=== PATIENT | female | born 1955 | race Caucasian/White ===

== ENCOUNTER 2019-02-05 13:47 | Outpatient (CLI) | payer MEDICAID ==
[~2019-02-05 13:47] MED LIST: ASCO125T PO; ASPI-1265 PO; ATOR40TA PO; BAC10T PO; CALCIUM CARB PO; CARV-50 PO; CEPH250T PO; CLIN300C53 PO; COU3T PO; CRANBERRY FRUIT PO; FERR325T28 PO; GABA-532 PO; HYDR-3973 PO; NITR100C PO; OXYB5TAB16 PO; ROPI8TAB3 PO; SERT50TA PO; VIT D3 PO; VIT K PO; [UNRECOGNIZED DRUG - OTHER] PO
== END 2019-02-05 23:59 | disposition home or self-care (01) ==
LOC: RAD 13:47
PROVIDERS: ATTEND Family Medicine
DX: I69.391 Dysphagia following cerebral infarction (principal); R13.14 Dysphagia, pharyngoesophageal phase; K21.9 Gastro-esophageal reflux disease without esophagitis; I50.9 Heart failure, unspecified; F17.200 Nicotine dependence, unspecified, uncomplicated
CPT/HCPCS: 74230

== ENCOUNTER 2024-03-27 09:14 | Day surgery (SDC) | payer BC, MEDICAID ==
[~2024-03-27] VITALS: Ht 162.6 cm; Wt 60.0 kg
[~2024-03-27 09:14] MED LIST changes: -ASCO125T PO; -ASPI-1265 PO; +ASPI-1397 PO; +ATOM40CA7 PO; -ATOR40TA PO; +ATOR40TA72 PO; -BAC10T PO; +BACL20TA PO; +CALC260T15 PO; -CALCIUM CARB PO; -CARV-50 PO; +CARV6.253 PO; -CEPH250T PO; -CLIN300C53 PO; -COU3T PO; -CRANBERRY FRUIT PO; +DULO30CA52 PO; +FERR-106 PO; -FERR325T28 PO; -GABA-532 PO; +GABA300C PO; +HYDR-3686 PO; -HYDR-3973 PO; -NITR100C PO; +OXYB10TA30 PO; -OXYB5TAB16 PO; +OXYC5CAP22 PO; +ROPI4TAB41 PO; -ROPI8TAB3 PO; -SERT50TA PO; -VIT D3 PO; -VIT K PO; +WARF3TAB56 PO; -[UNRECOGNIZED DRUG - OTHER] PO
[2024-03-27 09:49] VITALS: BP 128/68; PULSE 59; RESP 18; TEMP 98.1
[2024-03-27] MEDS ORDERED: simethicone 40mg/0.6ml oral drops 30ml ONE (11:10)
[2024-03-27] MEDS ORDERED: LIDOcaine 2% Viscous 15ml cup ONE (11:16)
[2024-03-27] MEDS ORDERED: fentaNYL/PF 50MCG/1 ML 2ML syringe ONE (11:16)
[2024-03-27] MEDS ORDERED: MIDAZolam 1 MG/ML 5ML VIAL ONE (11:16)
[2024-03-27] MEDS ORDERED: diphenhydrAMINE 50 mg/ml inj ONE (11:16)
[2024-03-27 11:35] VITALS: BP 93/49; PULSE 62; RESP 18; O2SAT 99
[2024-03-27 11:45] VITALS: BP 107/68; PULSE 64; RESP 11; O2SAT 100
[2024-03-27 11:55] VITALS: BP 124/70; PULSE 60; RESP 14; O2SAT 100
[2024-03-27 12:05] VITALS: BP 111/72; PULSE 57; RESP 15; O2SAT 100
== END 2024-03-27 12:15 | disposition home or self-care (01) ==
LOC: GI LAB 09:14
PROVIDERS: ATTEND Internal Medicine Gastroenterology
DX: R13.10 Dysphagia, unspecified (principal); K29.71 Gastritis, unspecified, with bleeding; K31.89 Other diseases of stomach and duodenum
CPT/HCPCS: 43239; 99152; J2250; J3010; J7030; Z7512; 88305; A4620; J1200

== ENCOUNTER 2025-03-05 18:55 | Emergency (ER) | payer MEDICARE, MEDICAID ==
[~2025-03-05] VITALS: Ht 162.6 cm; Wt 64.0 kg
[2025-03-05 18:59] VITALS: TEMP 98.2
[2025-03-05] MEDS: acetaminophen 1,000mg/100ml IV 100 ML IV ONE (19:00)
--- NOTE | 2025-03-05 19:02 | Physician Documentation ---
History of Present Illness ~ Stated Complaint: FALL Time Seen by MD: 18:59 Primary Medical Doctor: [facility] HPI Patient presents to the emergency room for evaluation after fall from her wheelchair. Positive head strike and she is on thinners. Complaining of left hip pain. Tetanus within 5 Years?: No Medication Reconciliation Allergies: Coded Allergies: No Known Allergies (Unverified , 11/02/11) Scheduled Aspirin (Aspirin EC), 1 TAB PO DAILY, (Reported) Atomoxetine HCl (Atomoxetine HCl), 1 CAP PO QAM, (Reported) Atorvastatin Calcium (Atorvastatin Calcium), 1 TAB PO DAILY, (Reported) Baclofen (Baclofen), 1 TAB PO QID, (Reported) Calcium Carbonate (Calcium Carbonate), 1 TAB PO BID, (Reported) Carvedilol (Carvedilol), 1 TAB PO BID, (Reported) Duloxetine HCl (Duloxetine HCl), 1 CAP PO DAILY, (Reported) Ferrous Sulfate (Ferrous Sulfate), 1 TAB PO DAILY, (Reported) Gabapentin (Neurontin), 1 CAP PO DAILY@1200, (Reported) Gabapentin (Neurontin), 3 CAP PO HS, (Reported) Hydroxyzine Hcl (Atarax), 1 TAB PO DAILY, (Reported) Oxybutynin Chloride (Ditropan Xl), 1 TAB PO DAILY, (Reported) Ropinirole HCl (Ropinirole HCl), 1 TAB PO BID, (Reported) Warfarin Sodium (Warfarin Sodium), 1 TAB PO DAILY, (Reported) Miscellaneous Medications Oxycodone HCl (Oxycodone HCl), 1 CAP PO, (Reported) Past Medical History Past Medical History: CVA/TIA/Stroke, Peripheral Neuropathy, High Cholesterol, Hypertension, Constipation, Chronic Pain Past Surgical History: orthopedic surgeries Other Past Surgical History: Right bka Alcohol Use: Occasionally Drug Use: none Lives with: S/O Lives In: Assisted Care Occupation: disabled Review of Systems ROS All review of systems negative except as per HPI Physical Exam Physical Exam General: Patient is awake, alert, oriented x4 in no acute distress Head: Normocephalic and atraumatic. Eyes: Conjunctival normal. EOMI. PERRL. ENT: Mucous membranes moist. Neck: Supple, trachea is midline. Chest: Clear to auscultation bilaterally without rales, rhonchi, or wheezes. There is no accessory muscle use or retractions. Cardiac: RRR without murmurs, gallops, or rubs. Abd: Soft, nondistended, nontender, with normoactive bowel sounds. No guarding, rebound, or rigidity. Extremities: Positive log roll on left leg. Neurovascularly intact. Noted BKA of right lower extremity. Progress Results/Orders Results/Orders Orders - NITHIN SUAZO MD Urinalysis, Cult If Indicated (03/05/25 18:59) Type And Screen (03/05/25 18:59) Chest,Single View (03/05/25 18:59) Nothing By Mouth (03/06/25 Breakfast) Monitor (03/05/25 18:59) Saline Lock (03/05/25 18:59) Ct Head (03/05/25 18:59) Hip Unilateral 2-3 Views (03/05/25 18:59) Completed Orders - NITHIN SUAZO MD Cbc/Diff (03/05/25 18:59) BMP (03/05/25 18:59) PTT (03/05/25 18:59) Pt Inr (03/05/25 18:59) Chest,Single View (03/05/25 18:59) Electrocardiogram (03/05/25 18:59) Ct Head (03/05/25 18:59) Hip Unilateral 2-3 Views (03/05/25 18:59) Acetaminophen 1,000mg/100ml Iv (Ofirmev (03/05/25 19:00) Ondansetron Inj. (Zofran 4mg/2ml Vial) (03/05/25 19:35) Morphine 2mg/Ml Inj. (Morphine Inj.) (03/05/25 20:15) Medications Received in ER Medications (Trade) Dose Ordered Sig/Chely Route PRN Reason Start Time Stop Time Status Last Admin Dose Admin Acetaminophen 100 ml @ 400 mls/hr ONCE ONCE IV 03/05/25 19:00 03/05/25 19:14 DC 03/05/25 19:00 400 MLS/HR (Zofran 4mg/2ml vial) 4 mg ONCE ONCE IV 03/05/25 19:35 03/05/25 19:36 DC 03/05/25 20:22 4 MG (morphine inj.) 4 mg ONCE ONCE IV 03/05/25 20:15 03/05/25 20:16 DC 03/05/25 20:22 4 MG Vital Signs 03/05/25 03/05/25 03/05/25 18:59 19:40 20:42 Temp 98.2 Pulse 56 52 Resp 16 16 16 B/P (MAP) 173/85 155/80 (105) Pulse Ox 98 97 Laboratory Tests Test 03/05/25 20:04 White Blood Count 4.1 L Red Blood Count 4.67 Hemoglobin 14.1 Hematocrit 41.3 Mean Corpuscular Volume 88.5 Mean Corpuscular Hemoglobin 30.2 Mean Corpuscular Hemoglobin Concent 34.1 Red Cell Distribution Width 17.0 H Platelet Count 175 Mean Platelet Volume 9.1 Neutrophils (%) (Auto) 65.0 Lymphocytes (%) (Auto) 18.4 L Monocytes (%) (Auto) 8.8 Eosinophils (%) (Auto) 6.9 H Basophils (%) (Auto) 0.9 Neutrophils # (Auto) 2.6 Lymphocytes # (Auto) 0.8 L Monocytes # (Auto) 0.4 Eosinophils # (Auto) 0.3 Basophils # (Auto) 0.0 CBC Comment Prothrombin Time 15.2 H INR International Normalized Ratio 1.5 Activated Partial Thromboplast Time 28 Coagulation Comments Sodium Level 145 Potassium Level 4.1 Chloride Level 110 H Carbon Dioxide Level 28.3 Anion Gap 7 L Blood Urea Nitrogen 25 H Creatinine 0.78 Estimated GFR/1.73 m2 73 BUN/Creatinine Ratio 32.1 H Glucose Level 103 Calcium Level 8.3 L Albumin 3.5 Chemistry Comments Medical Decision Making Additional information obtaine: old records Findings Patient presents to the emergency room for evaluation of fall. Differentials include but are not limited to intracranial bleed, fracture, dislocation, soft tissue injury therefore emergent labs and imaging indicated. Labs and imaging reassuring. Patient reports that she was strapped in her wheelchair in as it went over a pot [place] that caused her to fall. I do not feel she requires investigation into any cause such as syncope. Differential Dx:Considerations: Include: Closed head injury, Cardiac injury, Fracture(s), Intraabdominal injury, Pneumothorax, Cerebral contusion, Pulmonary contusion, Spine injury, Tracheal injury, Urological injury, Vascular injury, Abrasion(s), Contusion(s), Foreign body(s), Hematoma(s), Laceration(s), Encephalopathy, Other Departure Disposition: 01 HOME / SELF CARE / HOMELESS Impression: Primary Impression: Hip pain Condition: Stable Discharge Instructions: Contusion (Bruise) Referrals: NO PRIMARY CARE PROVIDER (PCP) Signature Scribe Signature: No scribe Attestation: The note accurately reflects work and decisions made by me.Nithin Suazo MD 03/05/25 20:57 NITHIN SUAZO MD Mar 05, 2025 19:02
--- NOTE | 2025-03-05 19:07 | ELECTROCARDIOGRAPH REPORT ---
[facility] Test Date: 2025-03-05 Test Time: 19:04:47 Pat Name: EDUARDO MOMIN Department: [facility]ER Patient ID: [id number] Room: Gender: F Leasing Director: : [id number] Requested By: SHMUEL SAL Order Number: [id number] Reading MD: Dr. CHANDA Chaparro Measurements Intervals [place] Rate: 55 P: 42 NV: 127 QRS: -6 QRSD: 138 T: 178 QT: 447 QTc: 428 Interpretive Statements Sinus bradycardia Left bundle branch block Baseline wander in lead(s) V2 Electronically Signed On 03-06-2025 13:00:[address] CHANDA Chaparro Please click the below link to view image of tracing.
[2025-03-05] MEDS ORDERED: morphine 4 MG/ML inj SYRINge IV ONE (19:35)
--- NOTE | 2025-03-05 19:38 | RADIOLOGY REPORT ---
EXAM: CT CT HEAD INDICATION: fall on thinners TECHNIQUE: CT images of the head were obtained without administration of IV contrast. CT scans at this facility use dose modulation, iterative reconstruction, and/or weight based dosing when appropriate to reduce radiation dose to as low as reasonably achievable. COMPARISON: None FINDINGS: PARENCHYMA: No acute hemorrhage. There is no mass effect, midline shift, or herniation. There is preservation of the longo white differentiation. VENTRICLES: No hydrocephalus. EXTRA-AXIAL SPACES: No extra-axial fluid collections. OTHER: Sequelae of prior left frontal craniotomy and joe hole creation. Minimal mucosal thickening of the right maxillary sinus. IMPRESSION: 1. No CT evidence of an acute intracranial abnormality.
--- NOTE | 2025-03-05 20:13 | RADIOLOGY REPORT ---
CLINICAL INDICATION: Hypotension TECHNIQUE: 4 views DI HIP UNILATERAL 2-3 VIEWS Comparison: None FINDINGS: Diffuse osteopenia. No evidence of acute fracture or dislocation. Partially visualized right hip hemiarthroplasty with lateral subluxation. IMPRESSION: 1. No acute osseous abnormality of the pelvis or left hip. 2. Right hip hemiarthroplasty with lateral subluxation, outpatient follow-up recommended.
--- NOTE | 2025-03-05 20:14 | RADIOLOGY REPORT ---
CHEST RADIOGRAPH Indication: Hypotension Technique: 1 view Comparison: CHEST,SINGLE VIEW on DOS: 11/02/21 FINDINGS: Lines and Tubes: External leads. Lungs/Pleura: No focal consolidation, pleural effusion or pneumothorax. Similar interstitial opacities and scarring/atelectasis in the lower lungs. Cardiomediastinum: Unremarkable. Other: No acute osseous abnormality. IMPRESSION: 1. No acute cardiopulmonary abnormality or significant change from prior exam.
[2025-03-05 20:20] LABS: MEAN PLATELET VOLUME 9.1 FL (7.4-10.4); RED CELL DISTRIBUTION WIDTH 17.0 % (11.5-14.5)
[2025-03-05] MEDS: ondansetron/PF 4mg/2ml inj IV ONE (20:22)
[2025-03-05 20:27] LABS: CREATININE 0.78 MG/DL (0.40-0.90); TOTAL CARBON DIOXIDE 28.3 MMOL/L (24-32); eCRCL 60 ML/MIN; eGFR 73 ML/MIN
[2025-03-05 20:31] LABS: INR 1.5 INR
[2025-03-05 20:50] LABS: APTT 28 SECONDS (22-32)
[2025-03-05 21:09] VITALS: BP 142/68; PULSE 54; RESP 16; O2SAT 98
[2025-03-15] MEDS ORDERED: OXYC10TA47 (12:02)
[2025-03-15] MEDS ORDERED: WARF4TAB69 PO (12:40)
== END 2025-03-05 21:20 | disposition home or self-care (01) ==
LOC: ER 18:55
DX: M25.552 Pain in left hip (principal); I10 Essential (primary) hypertension; G89.29 Other chronic pain; E78.00 Pure hypercholesterolemia, unspecified; Z86.73 Personal history of transient ischemic attack (TIA), and cerebral infarction without residual deficits; Z89.511 Acquired absence of right leg below knee; Z79.82 Long term (current) use of aspirin; Z79.01 Long term (current) use of anticoagulants; Z79.899 Other long term (current) drug therapy; Z72.89 Other problems related to lifestyle; Z98.890 Other specified postprocedural states; W05.0XXA Fall from non-moving wheelchair, initial encounter; Y93.89 Activity, other specified; Y92.89 Other specified places as the place of occurrence of the external cause; Y99.8 Other external cause status
CPT/HCPCS: 36415; 70450; 71045; 73502; 80048; 85025; 85610; 85730; 93005; 96365; 96366; 96375; 99285; J0131; J2270; J2405